=== PATIENT | female | born 1980 | race Caucasian/White ===

== ENCOUNTER 2018-04-19 14:30 | Emergency (ER) | payer MEDICAID ==
[2018-04-19] MEDS: IBUPROFEN 600 MG TAB PO (15:21)
[2018-04-19] MEDS: CYCLOBENZAPRINE 10 MG TAB PO (15:21)
== END 2018-04-19 16:49 | disposition home or self-care (01) ==
LOC: FTE 14:30
DX: S09.90XA Unspecified injury of head, initial encounter (principal); R40.2142 Coma scale, eyes open, spontaneous, at arrival to emergency department; R40.2362 Coma scale, best motor response, obeys commands, at arrival to emergency department; R40.2252 Coma scale, best verbal response, oriented, at arrival to emergency department; S00.03XA Contusion of scalp, initial encounter; M62.838 Other muscle spasm; Y04.0XXA Assault by unarmed brawl or fight, initial encounter
CPT/HCPCS: 99283; Z7502